=== PATIENT | female | born 1955 | race Caucasian/White ===

== ENCOUNTER 2022-12-26 04:01 | Day surgery (SDC) | payer OTHER, BC ==
[2022-12-21 16:01] VITALS: BMI 49.6
[2022-12-26] MEDS ORDERED: IBUPROFEN 800 MG/8 ML IJ IVPB PRN (07:35)
[2022-12-26] MEDS ORDERED: IBUPROFEN 600 MG TABLET (FP) PO PRN (07:35)
[2022-12-26] MEDS ORDERED: oxyCODONE HCL 5 MG TABLET PO PRN (07:35)
[2022-12-26] MEDS ORDERED: ONDANSETRON 4 MG/2 ML VIAL IVPUSH PRN (07:35)
[2022-12-26] MEDS ORDERED: PROPOFOL 40 ML ONE (07:36)
[2022-12-26] MEDS ORDERED: LIDOCAINE HCL/PF 2% SDV 5ML VIAL ONE (07:36)
[2022-12-26] MEDS ORDERED: MIDAZOLAM HCL 2 MG/2 ML SINGLE DOSE VIAL ONE (07:36)
[2022-12-26] MEDS ORDERED: ELECTROLYTE-148 SOLN 1,000 ML IV SCH (07:45)
[2022-12-26] MEDS ORDERED: DEXAMETHASONE SOD PHOSPHATE 4 MG/1 ML VIAL ONE (08:02)
[2022-12-26] MEDS ORDERED: ONDANSETRON 4 MG/2 ML VIAL ONE (08:02)
[2022-12-26] MEDS ORDERED: ACETAMINOPHEN 1000 MG/100 ML BAG IVPB PRN (08:32)
[2022-12-26] MEDS ORDERED: LACTATED RINGERS SOLUTION 1,000 ML IV SCH (08:45)
[2022-12-26 11:31] VITALS: RESP 20
[2022-12-26 13:17] VITALS: BP 152/81; PULSE 78; TEMP 97.7
== END 2022-12-26 13:48 | disposition home or self-care (01) ==
LOC: JASU-SURG 04:01
PROVIDERS: ATTEND Obstetrics & Gynecology
PROC: 0UB98ZZ Excision of Uterus, Via Natural or Artificial Opening Endoscopic (ICD-10-PCS; principal; 2022-12-26 07:30)
DX: N95.0 Postmenopausal bleeding (principal); N84.0 Polyp of corpus uteri
CPT/HCPCS: 87086; 88305-TC; 94760